=== PATIENT | male | born 1995 | race Caucasian/White ===

== ENCOUNTER 2022-03-17 08:17 | Inpatient (IN) | payer MEDICAID ==
[~2022-03-17] VITALS: Ht 170.2 cm; Wt 99.8 kg
[2022-03-17 09:01] LABS: BASOPHILS % (AUTO) 0.4 % (0.0-2.0); EOSINOPHILS % (AUTO) 2.5 % (1.0-6.0); HEMATOCRIT 47.8 % (41-53); HEMOGLOBIN 16.3 g/dL (13.5-17.5); LYMPHOCYTES # (AUTO) 2.2 K/uL (1.0-4.8); LYMPHOCYTES % (AUTO) 25.1 % (22.0-44.0); MEAN CORPUSCULAR HEMOGLOBIN 30.2 pg (26.0-34.0); MEAN CORPUSCULAR HGB CONC 34.2 G/dL (31.0-37.0); MEAN CORPUSCULAR VOLUME 88 fL (80-100); MONOCYTES # (AUTO) 0.8 K/uL (0.1-1.0); NEUTROPHILS # (AUTO) 5.5 K/uL (1.8-7.7); PLATELET COUNT (AUTO) 327 K/uL (150-450); RED BLOOD CELL COUNT(AUTO) 5.42 MIL/uL (4.50-5.90); RED CELL DISTRIBUTION WIDTH 14.8 % (11.5-14.5)
[2022-03-17 09:07] LABS: ANION GAP 5 mmol/L (8-16); CALCIUM, TOTAL 8.9 mg/dL (8.8-10.5); CARBON DIOXIDE 32 mmol/L (22-29); CHLORIDE 102 mmol/L (98-107); GLOMERULAR FILTR. RATE CALC > 60 mL/min (>60); GLUCOSE,RANDOM 110 mg/dL (70-110); SODIUM SERUM 139 mmol/L (136-145); UREA NITROGEN, BLOOD 7 mg/dL (7-18)
[2022-03-17 09:14] LABS: ALANINE AMINOTRANSFERASE 54 U/L (12-78); ALBUMIN 4.2 g/dL (3.4-5.0); ALKALINE PHOSPHATASE 63 U/L (46-116); ASPARTATE AMINOTRANSFERASE 28 U/L (15-37); BILIRUBIN,TOTAL 0.5 mg/dL (0.1-1.0); TOTAL PROTEIN, SERUM 8.1 g/dL (6.4-8.2)
[2022-03-17] MEDS: LORazepam 2 MG TABLET PO PRN (12:41)
[2022-03-17 12:42] LABS: COVID AG,FIA SOURCE NASAL SWAB
[2022-03-17 16:16] VITALS: BP 119/78
[2022-03-18 06:01] VITALS: BP 109/61
[2022-03-18] MEDS: LORazepam 2 MG TABLET PO PRN ×3 (06:07→16:58)
[2022-03-18 07:42] LABS: HEMOGLOBIN A1C 5.5 % (3.8-5.6)
[2022-03-18 08:07] LABS: CHOL/HDL RATIO 1.7 (4.2-7.3); FREE T4 (FREE THYROXINE) 0.8 ng/dL (0.76-1.46)
[2022-03-18 08:13] VITALS: BP 114/72
[2022-03-18 08:40] LABS: THYROID STIMULATING HORMONE 1.81 uIU/mL (0.36-3.74)
[2022-03-18] MEDS: SERTRALINE HCL 100 MG TABLET PO SCH (12:33)
[2022-03-18] MEDS ORDERED: ONDANSETRON HCL 4 MG TABLET PO PRN (14:15)
[2022-03-18] MEDS ORDERED: IBUPROFEN 400 MG TABLET PO PRN (14:15)
[2022-03-18] MEDS ORDERED: ACETAMINOPHEN 325 MG TABLET PO PRN (14:15)
[2022-03-18] MEDS ORDERED: GuaiFENesin/D-METHORPHAN [SUGAR-FREE] 200-20MG/10 ML SYRUP UDCUP PO PRN (14:15)
[2022-03-18] MEDS ORDERED: CloNIDine HCL 0.1 MG TABLET PO PRN (14:15)
[2022-03-18] MEDS ORDERED: MAG HYDROX/AL HYDROX/SIMETH ES 30 ML SUSPENSION UDCUP PO PRN (14:15)
[2022-03-18] MEDS ORDERED: PETROLATUM,WHITE 28 GM JELLY TP PRN (14:15)
[2022-03-18] MEDS ORDERED: DOCUSATE SODIUM 100 MG CAPSULE PO PRN (14:15)
[2022-03-18] MEDS ORDERED: MAGNESIUM HYDROXIDE SUSPENSION 30 ML UDCUP PO PRN (14:15)
[2022-03-18] MEDS ORDERED: ALBUTEROL SULFATE HFA 90 MCG/PUFF 8 GM INHALER IH PRN (14:15)
[2022-03-18] MEDS ORDERED: LOPERAMIDE HCL 2 MG CAPSULE PO PRN (14:15)
[2022-03-18 16:17] VITALS: BP 120/78
[2022-03-18] MEDS: ZOLPIDEM TARTRATE 10 MG TABLET PO PRN (20:05)
[2022-03-19 06:19] VITALS: BP 125/77
[2022-03-19] MEDS: LORazepam 2 MG TABLET PO PRN ×3 (06:34→15:41)
[2022-03-19] MEDS: SERTRALINE HCL 100 MG TABLET PO SCH (08:38)
[2022-03-19 09:08] VITALS: BP 127/70
[2022-03-19 16:41] VITALS: BP 121/70
[2022-03-19] MEDS: NICOTINE 14 MG/24 HOUR PATCH TD PRN (18:46)
[2022-03-19] MEDS: ZOLPIDEM TARTRATE 10 MG TABLET PO PRN (20:14)
[2022-03-20 01:45] VITALS: BP 118/68
[2022-03-20] MEDS: SERTRALINE HCL 100 MG TABLET PO SCH (08:26)
[2022-03-20] MEDS: LORazepam 2 MG TABLET PO PRN ×3 (09:15→17:51)
[2022-03-20 10:30] VITALS: BP 133/76
[2022-03-20] MEDS: NICOTINE 14 MG/24 HOUR PATCH TD PRN (15:01)
[2022-03-20 18:00] VITALS: BP 114/71
[2022-03-20] MEDS: ZOLPIDEM TARTRATE 10 MG TABLET PO PRN (21:10)
[2022-03-21 06:26] VITALS: BP 119/81
[2022-03-21 08:50] VITALS: BP 123/74
[2022-03-21] MEDS: SERTRALINE HCL 100 MG TABLET PO SCH (08:56)
[2022-03-21] MEDS: LORazepam 2 MG TABLET PO PRN ×2 (10:31→17:32)
[2022-03-21] MEDS: NICOTINE 14 MG/24 HOUR PATCH TD PRN (12:57)
[2022-03-21 16:24] VITALS: BP 107/64
[2022-03-21] MEDS: ZOLPIDEM TARTRATE 10 MG TABLET PO PRN (20:52)
[2022-03-22 01:38] VITALS: BP 104/62
[2022-03-22 08:43] VITALS: BP 120/77
[2022-03-22] MEDS: SERTRALINE HCL 100 MG TABLET PO SCH (09:10)
[2022-03-22] MEDS: LORazepam 2 MG TABLET PO PRN ×2 (09:10→13:43)
[2022-03-22] MEDS: HALOPERIDOL 5 MG TABLET PO PRN ×2 (09:10→13:43)
[2022-03-22 09:46] LABS: GLUCOMETER DEV NAME(LOC) POC.BV
[2022-03-22] MEDS ORDERED: SERT-440 PO (11:39)
[2022-03-22 16:44] VITALS: BP 110/63
== END 2022-03-22 18:10 | disposition home or self-care (01) | DRG 751 ==
LOC: EMS 08:30 → B2S 13:16
PROVIDERS: ADMIT Psychiatry & Neurology Child & Adolescent Psychiatry; ATTEND Psychiatry & Neurology Child & Adolescent Psychiatry
DX: F33.2 Major depressive disorder, recurrent severe without psychotic features (principal); R45.851 Suicidal ideations; F10.10 Alcohol abuse, uncomplicated; Z20.822 Contact with and (suspected) exposure to COVID-19; F17.210 Nicotine dependence, cigarettes, uncomplicated; F19.10 Other psychoactive substance abuse, uncomplicated; F41.9 Anxiety disorder, unspecified; G47.00 Insomnia, unspecified; Z71.41 Alcohol abuse counseling and surveillance of alcoholic; Z91.51 Personal history of suicidal behavior
CPT/HCPCS: 80053; 80061; 83036; 84439; 84443; 85025; 99285; G0480